=== PATIENT | male | born 1950 | race Hispanic/Latino ===

== ENCOUNTER 2022-06-11 08:22 | Outpatient (CLI) | payer MEDICARE ==
[2022-06-11] MEDS ORDERED: Iopamidol 300 61% 100 ML VIAL FS ONE (14:35)
== END 2022-06-11 08:23 | disposition home or self-care (01) ==
LOC: CSHCT 08:22
PROVIDERS: ATTEND Internal Medicine Gastroenterology
DX: C18.9 Malignant neoplasm of colon, unspecified (principal); Z98.890 Other specified postprocedural states; K59.00 Constipation, unspecified; N28.1 Cyst of kidney, acquired; K76.0 Fatty (change of) liver, not elsewhere classified; M47.816 Spondylosis without myelopathy or radiculopathy, lumbar region; M48.061 Spinal stenosis, lumbar region without neurogenic claudication
CPT/HCPCS: 74177; 82565; Q9967

== ENCOUNTER 2022-06-22 13:38 | Outpatient (CLI) | payer MEDICARE | END 2022-06-22 13:39 | disposition home or self-care (01) | LOC: CSHLAB 13:38 | PROVIDERS: ATTEND Internal Medicine Gastroenterology | DX: Z20.822 Contact with and (suspected) exposure to COVID-19 (principal); C18.9 Malignant neoplasm of colon, unspecified; Z98.890 Other specified postprocedural states | CPT/HCPCS: 87811 ==

== ENCOUNTER 2022-06-25 06:27 | Day surgery (SDC) | payer MEDICARE ==
[2022-06-24 11:52] VITALS: BMI 35.2
[2022-06-25] MEDS ORDERED: PROPOFOL 40 ML ONE (08:31)
[2022-06-25] MEDS ORDERED: Lidocaine 1% PF 5 ML VIAL ONE (08:31)
[2022-06-25] MEDS ORDERED: ePHEDrine Sulfate 50 MG/10 ML VIAL ONE (09:16)
== END 2022-06-25 09:55 | disposition home or self-care (01) ==
LOC: CSHSDC 06:27
PROVIDERS: ATTEND Internal Medicine Gastroenterology
PROC: 0DBK8ZZ Excision of Ascending Colon, Via Natural or Artificial Opening Endoscopic (ICD-10-PCS; principal; 2022-06-25)
PROC: 3E0H8KZ Introduction of Other Diagnostic Substance into Lower GI, Via Natural or Artificial Opening Endoscopic (ICD-10-PCS; 2022-06-25)
DX: Z12.11 Encounter for screening for malignant neoplasm of colon (principal); D12.2 Benign neoplasm of ascending colon; K57.30 Diverticulosis of large intestine without perforation or abscess without bleeding; Z85.038 Personal history of other malignant neoplasm of large intestine; I10 Essential (primary) hypertension; E78.5 Hyperlipidemia, unspecified; E11.9 Type 2 diabetes mellitus without complications; Z79.84 Long term (current) use of oral hypoglycemic drugs; Z79.899 Other long term (current) drug therapy; Z20.822 Contact with and (suspected) exposure to COVID-19; Z90.49 Acquired absence of other specified parts of digestive tract
CPT/HCPCS: 88305; J2704